=== PATIENT | male | born 2000 | race Hispanic/Latino ===

== ENCOUNTER 2024-01-01 21:32 | Emergency (ER) | payer OTHER, SELFPAY ==
[2024-01-01 21:34] VITALS: BP 96/46; BMI 22.3
--- NOTE | 2024-01-01 21:39 | EDRN ---
While seated in triage pt looked at mother, reached for her and as she stepped to his side he laid on her chest and went limp, lasted 3 seconds and sat up and said 'did I do it again?' Moved into wheelchair and taken to room #32.
[2024-01-01 22:05] VITALS: BP 100/53
[2024-01-01 23:00] VITALS: BP 94/54
--- NOTE | 2024-01-01 23:10 | ED.GENMED ---
History of Present Illness
General
Chief Complaint: Fainting/Passed Out
Source: patient and family (Mother)
Time Seen by Provider: 01/01/24 22:45
Travel History
Have you had any contact with someone who has COVID-19?: No
Do you have any symptoms of coronavirus? Fever > 100 degrees, chills, cough, shortness of breath, sore throat, loss of taste or smell, muscle aches, or headache?: No
History of Present Illness
History of Present Illness:
23-year-old male presents to the emergency room after having a syncopal episode in his room at home. Patient states he was sitting his room not doing anything in particular. He endorses vaping but states he vapes only nicotine. He cannot remember
if he was vaping at the time of the syncopal episode. Patient denies chest pain, shortness breath, abdominal pain. He has not had any recent nausea vomiting or diarrhea. Denies any black or bloody stool. She feels back to baseline now. He does
not feel he has any injuries to his tongue. No incontinence.
Past History
Past History
ED Past Medical History: None
ED Past Surgical History: None
Social History
Tobacco: Non-smoker
Phy Exam
Physical Exam
Physical Exam:
General: Awake, Alert, Oriented X3. No acute distress.
Vitals: unremarkable
Head: Atraumatic
Eyes: Pupils equal, EOMI
Throat: Airway intact, no exudates
Neck: Trachea midline
Lungs: Clear and equal b/l
Heart: Regular rate, no murmurs
Abd: Soft, Nontender, No pulsatile mass
Neuro: Nonfocal
Skin: Warm, dry, no rash
Extremities: pulses equal b/l, no edema
Course
Orders/Labs/Results
Orders:
Orders
01/01/24 22:46
Electrocardiogram (*1) Urgent
Reason for Study: Syncope
EKG- Treatment ONCE
01/01/24 23:08
0.9% Sodium Chloride 1000 ml [Nss] 1,000 ml IV BOLUS
01/01/24 23:24
Complete Blood Count/With Diff Urgent
01/01/24 23:42
Basic Metabolic Panel Urgent
Lyme Progressive Urgent
Comment: ADD ON
Troponin I Urgent
01/01/24 23:53
Add On- LAB Urgent
Tests Added?: lyme progressive
Abnormal Lab Results
01/01/24 01/01/24
23:24 23:42
MPV 11.0 H fL
(7.4-10.4)
Absolute Neuts (auto) 7.3 H 10^3/uL
(1.4-6.5)
Absolute Lymphs (auto) 0.8 L 10^3/uL
(1.2-3.4)
Absolute Monos (auto) 0.7 H 10^3/uL
(0.1-0.6)
Neutrophils % 82.2 H %
(42.2-75.2)
Lymphocytes % 9.1 L %
(20.5-51.1)
Glucose 122 H mg/dl
(70-99)
01/01/24 23:24
01/01/24 23:42
Vital Signs
Initial and Last Documented VS:
Initial Vital Signs
Temp Pulse Resp BP Pulse Ox
98.3 F 70 16 96/46 96
01/01/24 21:34 01/01/24 21:34 01/01/24 21:34 01/01/24 21:34 01/01/24 21:34
Last Documented Vital Signs
Temp Pulse Resp BP Pulse Ox
98.3 F 56 15 108/67 98
01/01/24 21:34 01/02/24 00:48 01/02/24 00:48 01/02/24 00:48 01/02/24 00:48
MDM/Problems Addressed
Differential Diagnosis Includes:
vasovagal syncope, dysrhythmia, anemia
MDM/Problems Addressed:
Patient presents after having a syncopal episode at home. Physical exam here is benign. Labs are essentially unremarkable. EKG shows a first-degree AV block. Suspect normal variant. A Lyme progressive test was sent to exclude Lyme disease.
Patient's x-rays are normal. Recommend help with his primary care provider. Patient ambulated in the department without difficulty. His vital signs have remained normal. He stable for discharge home.
*Pulse Oximetry
Patient hypoxic: no
*EKG
Interpreted by ED Provider?: Yes
Heart Rate: 50
Rate: bradycardiac
Rhythm: sinus
Interval: first degree heart block
Ischemia: no ischemia
*Production Clerk Interpretation
Rate: bradycardiac
Rhythm: sinus
*Critical Care Note
Total Time (30-74mins, 75-104mins- exclusive of procedures): Not Applicable
ED Attending Note
-
Portions of this chart may have been created with voice recognition software.� Occasional wrong word or��sound alike� substitutions may have occurred due to the inherent limitations of voice recognition software.
Discharge Plan
Departure
Patient Disposition: Home (Routine Discharge)
Date of Disposition: 01/02/24
Time of Disposition: 00:33
Patient with high blood pressure during this ER visit?: No
Condition: Good
Discharge Problem:
Syncope
Instructions: Syncope (Fainting) (DC)
Prescriptions:
No Action
No Current Medications
0
Referrals:
Ela Gonzalez NP [Family Provider] -
Activity Restrictions/Additional Instructions:
Your ekg shows a first degree av block, which may be a normal variant for you. However you should follow up with your family doctor. I have sent a Lyme test which will take a couple days to result. We will call you if the test is abnormal.
Interventions
Interventions:
*Risk Screen - Suicide Last Done: 01/01/24 21:34
*General Assessment Last Done: 01/01/24 23:14
*Neglect/Abuse Screening Last Done: 01/01/24 21:34
ED- Fall Risk Assessment Last Done: 01/01/24 23:29
*ED COVID-19 Vaccine History Last Done: 01/01/24 21:34
*Nursing Disposition Last Done: 01/02/24 00:48
ED- Cardiac Assessment Last Done: 01/01/24 23:29
ED- Neurological Assessment Last Done: 01/01/24 23:29
Discharge Date and Time
Discharge Date/Time: 01/02/24 00:49
Print Language: BAHRAINI
[2024-01-01] MEDS: NSS 1000 IV (23:25)
[2024-01-01 23:33] LABS: % Basophils 0.5 % (0-2); % Eosinophils 0.6 % (0-6); % Immature Granulocytes 0.3 % (0-0.5); % Lymphocytes 9.1 % (20.5-51.1); % Monocytes 7.3 % (1.7-9.3); % Neutrophils 82.2 % (42.2-75.2); Absolute Eosinophils 0.1 10^3/uL (0-0.7); Absolute Lymphocytes 0.8 10^3/uL (1.2-3.4); Absolute Monocytes 0.7 10^3/uL (0.1-0.6); Absolute Neutrophils 7.3 10^3/uL (1.4-6.5); Hematocrit 39.5 % (39.0-52.0); Hemoglobin 14.2 g/dL (13.0-18.0); Mean Corp Hgb Conc. 35.9 g/dL (33.0-37.0); Mean Corpuscular Hgb 29.6 pg (27.0-31.0); Mean Corpuscular Volume 82.3 fL (80.0-94.0); Nucleated Red Blood Cells % 0 % (-); Platelet Count 191 10^3/uL (130-400); Red Cell Dist. Width 12.1 % (11.5-14.5); White Blood Cell Count 8.9 10^3/uL (4.8-10.8)
[2024-01-02] VITALS: BP 108/67
[2024-01-02] LABS: Blood Urea Nitrogen 20 mg/dl (9-20); Calcium 9.3 mg/dl (8.4-10.2); Carbon Dioxide 26 mmol/L (22-30); Chloride 102 mmol/L (98-107); Estimated Creatinine Clearance 118 ml/min; Glucose 122 mg/dl (70-99); Potassium 3.7 mmol/L (3.5-5.1); Sodium 135 mmol/L (135-145); eGFR > 60.00
[2024-01-02 00:12] LABS: Troponin I < 0.012 ng/ml
[2024-01-02 00:48] VITALS: BP 108/67
[2024-01-04 16:25] LABS: Lyme Antibody Screen, EIA Negative (Negative)
== END 2024-01-02 00:49 | disposition home or self-care (01) ==
LOC: EMR 21:32
PROVIDERS: EMERGENCY PHYSICIAN Emergency Medicine; FAMILY PHYSICIAN Nurse Practitioner Family
DX: R55 Syncope and collapse (principal); I44.0 Atrioventricular block, first degree; F17.290 Nicotine dependence, other tobacco product, uncomplicated
CPT/HCPCS: 99284; 96360; 80048; 84484; 85025; 86618; 93005